=== PATIENT | male | born 1985 | race African-American/Black ===

== ENCOUNTER 2024-09-17 13:40 | Emergency (ER) | payer SELFPAY ==
[2024-09-17 16:10] LABS: #Basophils 0.04 10x3/uL (0.0-0.2); %Basophils 0.5 % (0.0-1.0); %Eosinophils 3.4 % (0.0-10.0); %Lymphocytes 44.8 % (21.0-51.0); %Monocytes 9.7 % (0.0-10.0); %Neutrophils 41.3 % (42.0-75.0); Hematocrit 46.7 % (42.0-52.0); Hemoglobin 15.4 g/dL (14.0-18.0); Mean Corpuscular Hemoglobin 29.5 pg (27.0-31.0); Mean Corpuscular Volume 89.5 fL (78.0-98.0); Mean Platelet Volume 9.9 fL (7.4-10.4); Platelet Count 226 10x3/uL (130-400); RBC Distribution Width 12.5 % (11.5-14.5); Red Blood Cell (RBC) Count 5.22 mill/uL (4.70-6.10)
[2024-09-17] MEDS ORDERED: Ketorolac Tromethamine 30 MG (1 mL) VIAL ONE (16:16)
[2024-09-17 16:28] LABS: ALT (SGPT) 15 U/L (Less than 45); AST (SGOT) 19 U/L (11-34); Alkaline Phosphatase 68 U/L (40-110); Anion Gap 12 mmol/L (10-20); BUN (Urea Nitrogen) 8 mg/dL (8.9-20.6); Bilirubin, Total 0.3 mg/dL (0.3-1.2); Calc. Creatinine Clearance 0 mL/min (70-130); Calcium 9.9 mg/dL (7.8-10.44); Carbon Dioxide 29 mmol/L (22-29); Chloride 105 mmol/L (98-107); Estimated GFR 102; Globulin 3.5 g/dL (2.4-3.5); Glucose 92 mg/dL (70-105); Magnesium 1.9 mg/dL (1.6-2.6); Potassium 4.3 mmol/L (3.5-5.1); Protein, Total 7.5 g/dL (6.0-8.3); Sodium 142 mmol/L (136-145)
[2024-09-17 16:33] LABS: Troponin I Less than 0.010 ng/mL (< 0.028)
== END 2024-09-17 20:41 | disposition left against medical advice (07) ==
LOC: ERS 13:40
DX: R07.89 Other chest pain (principal)
CPT/HCPCS: 36415; 71045; 80053; 83735; 83880; 84484; 85025; 93005; 96372; J1885

== ENCOUNTER 2025-03-22 18:20 | Emergency (ER) | payer OTHER ==
[2025-03-22] MEDS ORDERED: Ketorolac Tromethamine 30 MG (1 mL) VIAL ONE (19:23)
[2025-03-22] MEDS ORDERED: Acetaminophen 500 MG TAB ONE (19:23)
== END 2025-03-22 20:50 | disposition home or self-care (01) ==
LOC: ERS 18:20
DX: K08.89 Other specified disorders of teeth and supporting structures (principal); I10 Essential (primary) hypertension; Z79.2 Long term (current) use of antibiotics
CPT/HCPCS: 96372; 99282; J0665; J1885

== ENCOUNTER 2025-04-05 14:32 | Emergency (ER) | payer OTHER ==
[2025-04-05] MEDS ORDERED: HYDROcodone/Acetaminophen 10/325 mg Tablet ONE (15:19)
== END 2025-04-05 15:21 | disposition home or self-care (01) ==
LOC: ERS 14:32
DX: K04.7 Periapical abscess without sinus (principal); I10 Essential (primary) hypertension
CPT/HCPCS: 99282